=== PATIENT | male | born 1985 | race Caucasian/White ===

== ENCOUNTER 2019-02-11 13:32 | Outpatient (CLI) | payer OTHER ==
[2013-12-16 04:17] VITALS: BP 136/83
--- NOTE | 2019-02-11 16:51 | Diagnostic Imaging Report ---
PATIENT MR#: [id number] PATIENT PATIENT NAME: SUNIL WHITE DATE OF : 1985 REFERRING PHYSICIAN: Nadya Hutson EXAM DATE: 02/11/2019 ACCESSION NUMBER: [id number] EXAM DESCRIPTION: CT ABD W/O CONTRAST HISTORY: RIGHT FLANK PAIN AND HEMATURIA X 2 YEARS. TECHNIQUE: CT abdomen and pelvis without contrast. CT ABDOMEN WITHOUT CONTRAST: Lung bases: No lung base infiltrate or effusion. Liver: No intrahepatic ductal dilation. Gallbladder: Nondistended. Pancreas: No pancreatic duct dilation. Bowel loops: Nondistended. Spleen: Normal size. Adrenals: Normal size. Right kidney: Mild right hydronephrosis without parenchymal stones. There is a 7 x 8 x 13 mm stone wi thin the distal right ureter just proximal to the UVJ. Left kidney: No stones or hydronephrosis. Aorta: Normal caliber. Peritoneum: No free air. CT PELVIS WITHOUT CONTRAST: Colon: Normally distended with stool. Appendix: Normal appendix is seen. Bladder: Normally distended. Pelvic organs: Unremarkable. Peritoneum: No fluid. Skeleton: No acute findings. IMPRESSION: 7 x 8 x 13 mm stone within the distal right ureter at the UVJ, with mild right hydronephrosis. Findings were discussed with Dr. Hutson at the time of interpretation. Read by: Dr. Eyad Lee Transcribed by: Eyad Lee Transcribed Date: 02/11/2019 4:51:02 PM Electronically signed by: Dr. Eyad Lee Date signed: 02/11/2019 4:51:15 PM
== END 2019-02-11 14:00 ==
LOC: RAD 13:32
PROVIDERS: ATTEND Family Medicine
DX: R31.9 Hematuria, unspecified (principal); R10.9 Unspecified abdominal pain
CPT/HCPCS: 74150; 74176